=== PATIENT | male | born 2000 | race Caucasian/White ===

== ENCOUNTER 2024-02-19 19:53 | Emergency (ER) | payer BC, SELFPAY ==
[2024-02-19 19:56] VITALS: BP 126/83; PULSE 97; RESP 16; TEMP 36.9; O2SAT 96; BMI 19.5
[2024-02-19 20:48] LABS: Basophils Percent Auto 0.2 % (0.0-3.0); Eosinophils Percent Auto 0.5 % (0.0-7.0); Hematocrit 43.6 % (37.0-53.0); Hemoglobin* 14.8 gm/dL (13.5-17.5); Immature Granulocytes Pct Auto 0.1 %; Lymphocytes Percent Auto 9.2 % (20-44); Mean Corpuscular HGB Conc 34 gm/dL (32-36); Mean Corpuscular Hemoglobin 30 pg (26-34); Mean Corpuscular Volume 89 fL (80-100); Monocytes Percent Auto 5.3 % (0.0-11.0); Neutrophils Percent Auto 84.7 % (42.0-72.0); Platelet Count* 316 K/uL (140-440); RDW Coefficient of Variation % 12.2 % (11.5-15.5); White Blood Count* 11.41 K/uL (4.50-11.00)
[2024-02-19 21:11] LABS: Slide Review Reflex No
[2024-02-19 21:15] LABS: Chloride* 104 mmol/L (96-114); Potassium* 3.9 mmol/L (3.6-5.1); Sodium* 140 mmol/L (135-149)
[2024-02-19 21:17] LABS: Alkaline Phosphatase* 100 U/L (40-150); Aspartate Amino Transferase* 46 U/L (12-35); Bilirubin Direct* 0.1 mg/dL (0.0-0.5); Bilirubin Total* 0.4 mg/dL (0.1-1.5); Total Protein* 8.5 g/dL (6.0-8.3)
[2024-02-19 21:18] LABS: Alanine Aminotransferase* 43 U/L (4-50); Anion Gap 10 mEq/L (7-15); Blood Urea Nitrogen* 15 mg/dL (5-24); Carbon Dioxide* 26 mmol/L (20-32); Est. Creatinine Clearance* 89.96; Estimated Glomerular Filt Rate 110 ml/min
[2024-02-19 21:19] LABS: Calcium* 9.8 mg/dL (8.4-10.6); Glucose* 102 mg/dL (60-115)
[2024-02-19 21:23] LABS: Acetaminophen* < 10.0 ug/mL (10.0-30.0); Ethanol* < 0.01 % (0.01-0.03); Salicylate* < 1.0 mg/dL (1.0-10)
[2024-02-19 21:30] LABS: SARS PCR* Negative SARS-CoV-2 (Negative)
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
[2024-02-19 22:05] LABS: Amphetamine Screen Urine Negative (Negative); Barbiturate Screen Urine Negative (Negative); Benzodiazepines Screen Urine Negative (Negative); Cannabinoid Screen Urine Negative (Negative); Cocaine Screen Urine Negative (Negative); Methadone Screen Urine Negative (Negative); Methamphetamines Screen Urine Negative (Negative); Opiate Screen Urine Negative (Negative); Oxycodone Screen Urine Negative (Negative); Phencyclidine Screen Urine Negative (Negative); Tricyclic Antidepressant Urine Negative (Negative)
== END 2024-02-19 22:24 | disposition home or self-care (01) ==
PROVIDERS: Emergency Provider Family Medicine
DX: R45.851 Suicidal ideations (principal)
CPT/HCPCS: 36415; 80048; 80076; 80143; 80179; 80306; 82077; 84443; 85025; 87635; 99284